=== PATIENT | female | born 1970 | race Two or more races ===

== ENCOUNTER 2022-01-04 18:49 | Emergency (ER) | payer OTHER ==
[~2022-01-04] VITALS: Ht 165.1 cm; Wt 86.2 kg
== END 2022-01-04 22:18 | disposition home or self-care (01) ==
LOC: ER 18:49
DX: M54.50 Low back pain, unspecified (principal)

== ENCOUNTER → 2024-09-12 | Emergency (ER) | payer OTHER ==
[~2024-09-12] VITALS: Ht 162.6 cm; Wt 86.2 kg
[~2024-09-12] MED LIST: CEFTRIAXONE SODIUM 1,000 MG VIAL ONE; LIDOCAINE HCL 1% 10ML VIAL ONE
[2024-09-12 19:07] LABS: COVID-19 AG NEGATIVE (NEGATIVE)
[2024-09-12 19:09] LABS: INFLUENZA A AG NEGATIVE (NEGATIVE)
[2024-09-12 19:24] LABS: ALBUMIN 3.5 gm/dL (3.4-5.0); BILIRUBIN TOTAL 0.46 mg/dL (0.3-1.2); CALCIUM 8.8 mg/dL (8.5-10.1); CREATININE SERUM 0.79 mg/dL (0.55-1.02); GFR 75.28; GLOBULINA 3.6 G/DL (2.4-3.5); POTASSIUM 4.12 mEq/L (3.5-5.1); TOTAL PROTEIN 7.1 gm/dL (6.4-8.2)
[2024-09-12 19:56] LABS: HEMATOCRIT 42.4 % (34.1-44.9); HEMOGLOBIN 13.8 g/dL (11.2-15.7)
[2024-09-12 19:57] LABS: BASO % 0.2 % (0.1-1.2); LYMPH # 1.58 (1.18-3.74); LYMPH % 8.7 % (19.3-53.1); NEUT # 15.04 (1.56-6.13); NEUT % 82.5 % (34.0-71.1); PLATELET COUNT 304 K/uL (163-369)
[2024-09-12 19:58] LABS: MONO # 1.45 (0.24-0.82)
== END | disposition home or self-care (01) ==
LOC: ER 11:39
PROVIDERS: Preventive Medicine Public Health & General Preventive Medicine
DX: B34.9 Viral infection, unspecified (principal); R50.9 Fever, unspecified; Z20.822 Contact with and (suspected) exposure to COVID-19